=== PATIENT | female | born 2000 | race Caucasian/White ===

== ENCOUNTER 2024-11-12 08:38 | Day surgery (SDC) | payer OTHER ==
[~2024-11-12 08:38] MED LIST: Sodium Chloride 0.9% 10 ML Syringe FLUSH PRN
[2024-11-12] MEDS ORDERED: Propofol 200 MG/20 ML SDV IV ONE (08:39)
[2024-11-12] MEDS ORDERED: Succinylcholine 200 MG/10 ML MDV IV ONE (08:39)
[2024-11-12] MEDS ORDERED: Ondansetron 4 MG/2 ML SDV IVPUSH ONE (08:39)
[2024-11-12] MEDS ORDERED: Citric Acid/Sodium Citrate Solution 30 ML Cup PO ONE (08:39)
[2024-11-12] MEDS ORDERED: Midazolam 1 MG/ML 2 ML SDV IV ONE (08:39)
[2024-11-12] MEDS ORDERED: Dexamethasone 4 MG/ML 5 ML MDV IVPUSH ONE (08:39)
[2024-11-12] MEDS ORDERED: Ketorolac 30 MG/ML SDV IVPUSH ONE (08:39)
[2024-11-12] MEDS ORDERED: Rocuronium 100 MG/10 ML MDV IV ONE (08:39)
[2024-11-12] MEDS ORDERED: fentaNYL 100 MCG/2 ML SDV IV ONE (08:39)
[2024-11-12] MEDS ORDERED: diphenhydrAMINE 50 MG/ML SDV IVPUSH ONE (08:39)
[2024-11-12] MEDS ORDERED: Lactated Ringers 1,000 ML IV ONE (08:39)
[2024-11-12] MEDS ORDERED: Lidocaine 2% 100 MG/5 ML Syringe IVPUSH ONE (08:39)
[2024-11-12] MEDS: Acetaminophen 500 MG Tab PO ONE (09:50)
[2024-11-12] MEDS: Gabapentin 300 MG Cap PO ONE (09:51)
[2024-11-12] MEDS: Lactated Ringers 1,000 ML IV SCH (11:07)
[2024-11-12] MEDS: ceFAZolin 1 GM Vial IVPUSH ONE (11:07)
[2024-11-12] MEDS: Bupivacaine 0.5% 30 ML SDV INJECT ONE (11:39)
== END 2024-11-12 14:26 | disposition home or self-care (01) ==
LOC: FB.SDS 08:38
PROVIDERS: ATTEND Surgery
DX: K80.10 Calculus of gallbladder with chronic cholecystitis without obstruction (principal); I10 Essential (primary) hypertension; Z79.899 Other long term (current) drug therapy; Z88.0 Allergy status to penicillin
CPT/HCPCS: 00790; 47562; 88304; A9270; J0330; J0665; J0690; J1100; J1200; J1885; J2250; J2405; J2704; J3010; J7120